=== PATIENT | female | born 1995 | race Caucasian/White ===

== ENCOUNTER 2018-07-21 16:13 | Emergency (ER) | payer BC ==
[2018-07-21 17:21] LABS: ABSOLUTE BASOPHILS # (AUTO) 0.1 10^3/uL (0.0-0.2); ABSOLUTE EOSINOPHILS # (AUTO) 0.1 10^3/uL (0.0-0.6); ABSOLUTE LYMPHOCYTES (AUTO) 3.2 10^3/uL (0.5-4.7); ABSOLUTE MONOCYTES (AUTO) 0.3 10^3/uL (0.1-1.4); ABSOLUTE NEUT (AUTO) 5.9 10^3/uL (1.7-8.2); BASOPHILS % (AUTO) 0.6 % (0-2); EOSINOPHILS % (AUTO) 0.7 % (0-6); HEMATOCRIT 33.4 % (36.0-47.0); HEMOGLOBIN 11.2 g/dL (12.0-15.5); LYMPHOCYTES % (AUTO) 33.5 % (13-45); MEAN CORPUSCULAR HEMOGLOBIN 29.5 pg (27.0-33.4); MEAN CORPUSCULAR HGB CONC 33.5 g/dL (32.0-36.0); MEAN CORPUSCULAR VOLUME 88 fl (80-97); MONOCYTES % (AUTO) 3.6 % (3-13); PLATELET COUNT 323 10^3/uL (150-450); RED CELL DISTRIBUTION WIDTH 14.3 % (11.5-14.0); SEGMENTED NEUTROPHILS % (AUTO) 61.6 % (42-78); TOTAL CELLS COUNTED % (AUTO) 100 %; WHITE BLOOD COUNT 9.6 10^3/uL (4.0-10.5)
[2018-07-21 17:36] LABS: APPEARANCE,URINE SLIGHTLY-CLOUDY; BILIRUBIN,URINE NEGATIVE (NEGATIVE); COLOR,URINE AMBER; GLUCOSE, URINE NEGATIVE (NEGATIVE); KETONES,URINE 100 mg/dL (NEGATIVE); LEUKOCYTE ESTERASE,URINE NEGATIVE (NEGATIVE); NITRITE,URINE NEGATIVE (NEGATIVE); PROTEIN,URINE 100 mg/dL (NEGATIVE); URINE SPECIFIC GRAVITY 1.027; UROBILINOGEN,URINE NEGATIVE mg/dL (<2.0)
[2018-07-21 17:42] LABS: ALANINE AMINOTRANSFERASE 23 U/L (9-52); ALBUMIN 4.4 g/dL (3.5-5.0); ALKALINE PHOSPHATASE 64 U/L (38-126); ANION GAP 12 (5-19); ASPARTATE AMINO TRANSFERASE 20 U/L (14-36); BILIRUBIN,DIRECT 0.3 mg/dL (0.0-0.4); BILIRUBIN,TOTAL 0.7 mg/dL (0.2-1.3); BLOOD UREA NITROGEN 10 mg/dL (7-20); CALCIUM 9.7 mg/dL (8.4-10.2); CARBON DIOXIDE 24 mmol/L (22-30); CHLORIDE 105 mmol/L (98-107); GLUCOSE 109 mg/dL (75-110); LIPASE 38.9 U/L (23-300); POTASSIUM 3.8 mmol/L (3.6-5.0); SODIUM 140.5 mmol/L (137-145); TOTAL PROTEIN 7.6 g/dL (6.3-8.2)
[2018-07-21 18:01] LABS: FREE T4 (FREE THYROXINE) 0.98 ng/dL (0.78-2.19)
--- NOTE | 2018-07-21 18:32 | ER Document Report ---
ED General - General Chief Complaint: Dizziness Stated Complaint: HEADACHE/DIZZINESS Time Seen by Provider: 07/21/18 16:36 TRAVEL OUTSIDE OF THE [place] IN LAST 30 DAYS: No - HPI Patient complains to provider of: Feeling unwell headaches dizziness Notes: Patient coming in for feeling unwell headaches dizziness ongoing for greater than a month patient states feels like she is in a fog. Patient denies any fever chills vomiting or diarrhea states sometimes she is slightly nauseous. Patient recently stopped taking her control pills patient denies any weight gain denies any recent travel denies any recent antibiotics. Patient past medical states is only positive for anemia. Patient currently on her menstrual cycle. Otherwise resting comfortably upon my evaluation. Denies any sick contacts. - Related Data Allergies/Adverse Reactions: No Known Allergies Allergy (Verified 07/21/18 16:36) Past Medical History - Social History Smoking Status: Never Smoker Frequency of alcohol use: None Drug Abuse: None Family History: Reviewed & Not Pertinent Patient has suicidal ideation: No Patient has homicidal ideation: No Renal/ Medical History: Denies: Hx Peritoneal Dialysis Review of Systems - Review of Systems Constitutional: Other - Fatigue dizziness headaches feeling unwell EENT: No symptoms reported Cardiovascular: No symptoms reported Respiratory: No symptoms reported Gastrointestinal: No symptoms reported Genitourinary: No symptoms reported Female Genitourinary: No symptoms reported Musculoskeletal: No symptoms reported Skin: No symptoms reported Hematologic/Lymphatic: No symptoms reported Neurological/Psychological: No symptoms reported Physical Exam - Vital signs Vitals: Temp Pulse Resp BP Pulse Ox 98.4 F 76 18 109/60 100 07/21/18 16:23 07/21/18 16:23 07/21/18 16:23 07/21/18 16:23 07/21/18 16:23 Interpretation: Normal - General General appearance: Appears well, Alert - HEENT Head: Normocephalic, Atraumatic Eyes: Normal Pupils: PERRL - Respiratory Respiratory status: No respiratory distress Chest status: Nontender Breath sounds: Normal Chest palpation: Normal - Cardiovascular Rhythm: Regular Heart sounds: Normal auscultation Murmur: No - Abdominal Inspection: Normal Distension: No distension Bowel sounds: Normal Tenderness: Nontender Organomegaly: No organomegaly - Back Back: Normal, Nontender - Extremities General upper extremity: Normal inspection, Nontender, Normal color, Normal ROM , Normal temperature General lower extremity: Normal inspection, Nontender, Normal color, Normal ROM , Normal temperature, Normal weight bearing. No: Tori's sign - Neurological Neuro grossly intact: Yes Cognition: Normal Orientation: AAOx4 Daniel Coma Scale Eye Opening: Spontaneous Daniel Coma Scale Verbal: Oriented Daniel Coma Scale Motor: Obeys Commands [place] Coma Scale Total: 15 Speech: Normal Motor strength normal: LUE, RUE, LLE, RLE Sensory: Normal - Psychological Associated symptoms: Normal affect, Normal mood - Skin Skin Temperature: Warm Skin Moisture: Dry Skin Color: Normal Course - Re-evaluation Re-evalutation: 07/21/18 20:36 No acute pathology seen on laboratory studies physical examination otherwise normal. Patient was encouraged follow-up with primary care physician for further evaluation patient states understanding patient was discharged home with Zofran and Compazine for headache and nausea control. - Vital Signs Vital signs: Temp Pulse Resp BP Pulse Ox 98.4 F 68 18 110/66 100 07/21/18 16:23 07/21/18 18:35 07/21/18 18:35 07/21/18 18:35 07/21/18 18:35 - Laboratory Result Diagrams: 07/21/18 17:08 07/21/18 17:08 Laboratory results interpreted by me: 07/21/18 07/21/18 16:55 17:08 Hgb 11.2 L Hct 33.4 L RDW 14.3 H Urine Protein 100 H Urine Ketones 100 H Urine Blood LARGE H Discharge - Discharge Clinical Impression: Feeling unwell Condition: Good Disposition: HOME, SELF-CARE Instructions: Dizziness ([facility]), Family Physicians / Practices, Headache ([facility]) Additional Instructions: Laboratory studies today do not show any significant pathology. No signs of infection no signs of acute electrolyte abnormalities I highly recommend following up with 1 of the primary care physicians listed below. Prescriptions: Ondansetron HCl [Zofran 4 mg Tablet] 1 - 2 tab PO Q6 #30 tablet Prochlorperazine Maleate [Compazine] 5 mg PO Q6 #30 tablet Forms: Return to Work
[2018-07-21 18:37] VITALS: BP 110/66
== END 2018-07-21 18:43 | disposition home or self-care (01) ==
LOC: ER 16:13
DX: R51 Headache (principal); R42 Dizziness and giddiness; R11.0 Nausea; Z86.2 Personal history of diseases of the blood and blood-forming organs and certain disorders involving the immune mechanism
CPT/HCPCS: 36415; 80053; 81001; 83690; 84439; 84443; 84702; 85025; 99284

== ENCOUNTER 2018-11-24 23:36 | Emergency (ER) | payer SELFPAY ==
--- NOTE | 2018-11-25 00:57 | ER Document Report ---
ED General - General Chief Complaint: Chest Wall Pain Stated Complaint: LEFT SIDE CHEST PAIN Time Seen by Provider: 11/25/18 00:38 Notes: Patient is a 23-year-old female who presents with complaint of pain in the left side of the chest and lower portion chest. She says is worse when she lays flat. She says when she is up walking around she does not have the pain. It is affected by deep breathing. She says initially the pain would improve with Tums however over the last few days it no longer improves with Tums. Pain started just over a week ago. No leg pain or leg swelling. No abdominal pain. No fevers. No vomiting. His final complaint is of some tooth pain. She has some pain over the right upper premolar. She says that she feels it might be an infected. No facial swelling. She had a root canal performed in this tooth a few months ago. TRAVEL OUTSIDE OF THE [place] IN LAST 30 DAYS: No - Related Data Allergies/Adverse Reactions: No Known Allergies Allergy (Verified 07/21/18 16:36) Past Medical History - Social History Smoking Status: Never Smoker Frequency of alcohol use: None Drug Abuse: None Family History: Reviewed & Not Pertinent Renal/ Medical History: Denies: Hx Peritoneal Dialysis Review of Systems - Review of Systems Notes: My Normal Review Basic REVIEW OF SYSTEMS: CONSTITUTIONAL : Denies fever, chills, or sweats. Denies recent illness. EENT: Dental pain CARDIOVASCULAR: Chest pain RESPIRATORY: Denies cough, cold, or chest congestion. Denies shortness of breath, difficulty breathing, or wheezing. GASTROINTESTINAL: Denies abdominal pain. Denies nausea, vomiting, or diarrhea. Denies constipation. Last BM: NEUROLOGICAL: Denies altered mental status or loss of consciousness. Denies headache. Denies weakness or paralysis or loss of use of either side. Denies problems with gait or speech. Denies sensory or motor loss. ALL OTHER SYSTEMS REVIEWED AND NEGATIVE. Physical Exam - Vital signs Vitals: Temp Pulse Resp BP Pulse Ox 99.0 F 83 16 123/76 100 11/25/18 00:07 11/25/18 00:07 11/25/18 00:07 11/25/18 00:07 11/25/18 00:07 - Notes Notes: General Appearance: Well nourished, alert, cooperative, no acute distress, no obvious discomfort. Wll appearing. Vitals: reviewed, See vital signs table. Head: no swelling or tenderness to the head Eyes: PERRL, EOMI, Conjuctiva clear Mouth: Right upper premolar is evidence of previous root canal. No significant gingival swelling. No facial swelling. Throat: No tonsillar inflammation, No airway obstruction, No lymphadenopathy Neck: Supple, no neck tenderness, No thyromegaly Chest wall: No reproducible pain to palpation of chest wall. Lungs: No wheezing, No rales, No rhonci, No accessory muscle use, good air exchange bilaterally. Heart: Normal rate, Regular rythm, No murmur, no rub Abdomen: Normal BS, soft, No rigidity, No abdominal tenderness, No guarding, no rebound, no abdominal masses, no organomegaly Extremities: good pulses in all extremities, no swelling or tenderness in the extremities, no edema. Skin: warm, dry, appropriate color, no rash Neuro: speech clear, oriented x 3, normal affect, responds appropriately to questions. Course - Re-evaluation Re-evalutation: 11/25/18 00:57 EKG is reviewed and interpreted by me. EKG shows sinus rhythm with rate of [address] segment elevation or depression. No ischemic T wave inversions. ME interval, QRS duration, QT intervals are within normal range. No old EKG available for comparison. 11/25/18 01:09 I suspect the patient's pain is probably related to acid reflux. I suspect this based on the fact that initially her pain was improving with Tums. Also the pain occurs when she lays flat. Patient looks well. I will prescribe her Carafate. I encouraged her to take omeprazole. She also complains of a tooth pain from where she had previous root canal. Root canal was over a month ago. I will place her on penicillin and have her follow-up with her dentist. I strongly encouraged her return to ER if she has fevers, worsening pain, vomiting, or black or tarry stools. Patient agrees with plan will be discharged home. I do not suspect PE. She is PERC rule negative. She looks well on exam. Dictation of this chart was performed using voice recognition software; therefore, there may be some unintended grammatical errors. 11/25/18 01:10 - Vital Signs Vital signs: Temp Pulse Resp BP Pulse Ox 99.0 F 83 16 123/76 100 02/12/19 00:07 11/25/18 00:07 11/25/18 00:07 11/25/18 00:07 11/25/18 00:07 Discharge - Discharge Clinical Impression: Chest pain Qualifiers: Chest pain type: unspecified Qualified Code(s): R07.9 - Chest pain, unspecified Condition: Good Disposition: HOME, SELF-CARE Additional Instructions: I suspect that your pain going into her chest could be related to acid reflux and esophagitis. Please take omeprazole every day. You can buy this [id number]. I also prescribed Carafate which will help coat the esophagus and stomach so that he can heal. I have prescribed penicillin for your tooth pain. Please make a appointment to see her dentist. Please return to the ER immediately if you have fevers, vomiting, black or tarry appearing stools, or if you feel that your pain is worsening. Please eat a bland diet and avoid acidic foods, fried foods, and spicy foods. Prescriptions: Penicillin V Potassium [Penicillin Vk 500 mg Tablet] 500 mg PO BID #14 tablet Sucralfate [Carafate Susp 1 Gm/10 Ml Udcup] 1 gm PO ACHS 10 Days udc
[2018-11-25 01:19] VITALS: BP 114/62
--- NOTE | 2018-11-25 17:51 | EKG REPORT ---
SEVERITY:- BORDERLINE ECG - SINUS RHYTHM BORDERLINE RIGHT AXIS DEVIATION BORDERLINE T ABNORMALITIES, ANTERIOR LEADS : Confirmed by: Naz Forbes MD 25-Nov-2018 17:51:26
== END 2018-11-25 01:18 | disposition home or self-care (01) ==
LOC: ER 23:36
DX: R07.9 Chest pain, unspecified (principal); R07.89 Other chest pain
CPT/HCPCS: 93005; 93010; 99284